=== PATIENT | female | born 1960 | race Caucasian/White ===

== ENCOUNTER 2021-05-01 20:25 | Emergency (ER) | payer OTHER ==
[~2021-05-01] VITALS: Ht 175.3 cm; Wt 114.2 kg
[2021-05-01 20:27] VITALS: BP 172/92
[2021-05-01] MEDS ORDERED: tetanus & diphtheria toxoid (Td) vaccine 0.5ml IMVAC ONE (20:50)
[2021-05-01] MEDS ORDERED: TETanus/Pertussis (Acell)/Diphther VAC/PF (Tdap-Adult) 0.5ml syringe IMVAC ONE (20:55)
[2021-05-01] MEDS ORDERED: ketorolac trometh. 30mg/ml inj. IM ONE (22:30)
[2021-05-01] MEDS ORDERED: HYDROcodone/acetaminophen 10/325mg tab PO ONE (22:30)
== END 2021-05-01 23:49 | disposition home or self-care (01) ==
LOC: ER 20:26
DX: S80.01XA Contusion of right knee, initial encounter (principal); S00.83XA Contusion of other part of head, initial encounter; S00.31XA Abrasion of nose, initial encounter; S09.90XA Unspecified injury of head, initial encounter; I10 Essential (primary) hypertension; Z88.8 Allergy status to other drugs, medicaments and biological substances; W10.9XXA Fall (on) (from) unspecified stairs and steps, initial encounter; Y93.89 Activity, other specified; Y92.830 Public park as the place of occurrence of the external cause; Y99.8 Other external cause status
CPT/HCPCS: 73560; 90715; 99283